=== PATIENT | female | born 1990 | race Caucasian/White ===

== ENCOUNTER 2025-02-01 09:01 | Emergency (ER) | payer SELFPAY ==
[2025-02-01] MEDS ORDERED: Sodium Chloride 0.9% 10 ML Syringe FLUSH PRN (09:59)
[2025-02-01] MEDS: Ketorolac 15 MG/ML SDV IVPUSH ONE (10:19)
== END 2025-02-01 11:55 | disposition home or self-care (01) ==
LOC: JD.ED 09:01
DX: K04.7 Periapical abscess without sinus (principal); E86.0 Dehydration
CPT/HCPCS: 96361; 96374; 96375; 99283; J0696; J1885; J2270; J7030